=== PATIENT | male | born 1955 | race Caucasian/White ===

== ENCOUNTER 2017-10-29 12:41 | Emergency (ER) | payer BC, SELFPAY ==
[2017-10-29 12:45] VITALS: BP 160/87; PULSE 57; RESP 20; O2SAT 100; BMI 25.1
[2017-10-29 13:30] VITALS: BP 147/84; PULSE 57; RESP 15; O2SAT 100
--- NOTE | 2017-10-29 13:31 | DI.RAD.S_ITS ---
PROCEDURE: XR CHEST 2V INDICATIONS: Dizziness TECHNIQUE: 2 views of the chest were acquired. COMPARISON: None. FINDINGS: Surgical changes and devices: None. Lungs and pleura: No pleural effusions or pneumothorax. Lungs are clear. Mediastinum: Mediastinal contours are normal. Heart size is normal. Bones and chest wall: No suspicious bony abnormalities. Soft tissues appear unremarkable. IMPRESSION: 1. No acute cardiopulmonary disease. Dictated by: William Wilcox M.D. on 10/29/2017 at 14:34 Approved by: William Wilcox M.D. on 10/29/2017 at 14:35
[2017-10-29] MEDS: SODIUM CHLORIDE 0.9% 1,000 ML 150 ML IV (13:50)
[2017-10-29 14:06] LABS: Add Manual Diff / Slide Review NO; Basophils Percent Auto 0.6 % (0-2); Eosinophils Percent Auto 0.7 % (2-4); Hematocrit 41.7 % (41-53); Hemoglobin 14.4 g/dL (13.5-17.5); Lymphocytes Percent Auto 14.7 % (25-40); Mean Corpuscular HGB Conc 34.5 % (30-36); Mean Corpuscular Hemoglobin 29.7 PG (26-34); Mean Corpuscular Volume 86.1 fL (80-100); Monocytes Percent Auto 8.9 % (3-14); Neutrophils Absolute Auto 5000 /uL (3000-5900); Neutrophils Percent Auto 75.1 % (50-75); Platelet Count 155 X10^3/uL (150-400); Red Blood Cell Count 4.85 X10^6/uL (4.5-5.9); Red Cell Distribution Width 14.1 % (11.6-14.8); White Blood Cell Count 6.6 X10^3/uL (4.5-11.0)
[2017-10-29 14:10] LABS: HEMOLYSIS < 15 (0-50); Potassium 4.4 mmol/L (3.4-5.1); Sodium 138 mmol/L (137-145)
--- NOTE | 2017-10-29 14:16 | ED.DIZZY ---
HPI - Dizziness General Chief Complaint: Dizziness Stated Complaint: LIGHTHEADED/DIZZY Time Seen by Provider: 10/29/17 13:00 Source: patient Mode of arrival: ambulatory Limitations: no limitations History of Present Illness HPI Narrative: 62M hx HTN, Meniere's presenting after episode of lightheadedness which lasted longer than he is accustomed after standing up. It's persistence was not associated with any other symptoms and he came to get evaluated because of the duration of 20 minutes. No vision, hearing changes, no chest pain, SOB, cough, nausea or vomiting. Denies peripheral edema, or urinary complaints. PCP Dr. More Related Data Home Medications Medication Instructions Recorded Confirmed FLAXSEED (FLAXSEED OIL) 1 cap PO Q DAY #0 12/31/10 Fish Oil (#FISH OIL) 1 iu PO Q DAY #0 12/31/10 [VITAMINS] #0 12/31/10 niacin 250 mg PO Q DAY #0 12/31/10 ASPIRIN (#ASPIRIN) 80 mg PO QDAY #0 11/05/11 Previous Rx's Medication Instructions Recorded efinaconazole [Jublia] 1 ml TP QDAY #1 bot 10/01/16 lisinopril 2.5 mg PO Q DAY #90 tab 10/11/16 hydrochlorothiazide 25 mg PO QDAY #90 tab 10/25/16 [Shingrix] 1 dose #1 dose 07/06/17 diph,pertuss(acel),tet vac(PF) 0.5 ml IM X1 #1 dose 07/06/17 [Adacel(Tdap Adolesn/Adult)(PF)] Review of Systems Review of Systems ROS: Constitutional - No fever, chills Eyes - No visual changes ENT - No hearing loss Cardiovascular - Lightheadedness as per No chest pain, No edema, no palpitations Respiratory - No cough, no shortness of breath GI - No abdominal pain, No nausea, No vomiting - No dysuria, no hematuria MSK- No back pain Skin - No rash Neuro - No weakness, no change in level of consciousness Endocrine - No polyuria Hematologic/lymphatic - No easy bruising, no petechiae PFSH Social History Smoking Status: Never smoker Exam Narrative Exam Narrative: Exam: Constitutional - Well appearing, well nourished, NAD EYES - PERRL, EOMI ENT - Moist oral mucosa Cardiovasuclar - Normal rate, rhythm, no murmurs, gallops, rubs Respiratory - Lungs CTA bilaterally, no increased respiratory effort, no accessory muscle use GI - Soft, non tender, non distended, no rebound MSK - No deformity, No CVA tenderness, No peripheral edema Skin - No rash, no petechiae Neuro - A&Ox3, moves all extremities. No focal deficits Initial Vital Signs Initial Vital Signs: Vital Signs Pulse Rate 57 L 10/29/17 12:45 Respiratory Rate 20 10/29/17 12:45 Blood Pressure 160/87 H 10/29/17 12:45 Pulse Oximetry 100 10/29/17 12:45 Course Orders Ordered: ED Orders 10/29/17 12:52 EKG-12 Lead Stat 10/29/17 13:30 Basic Metabolic Panel Stat Complete Blood Count AUTO DIFF Stat Troponin I Stat 10/29/17 13:31 XR chest 2V Stat 10/29/17 14:14 Lactate (Lactic Acid) Stat Sodium Chloride (Normal Saline 0.9%) 1,000 mls @ 150 mls/hr IV CONT GAIL Last Admin: 10/29/17 13:50 Dose: 150 mls/hr Vital Signs - 8 hr 10/29/17 12:45 10/29/17 13:30 10/29/17 14:43 Pulse Rate 57 L 57 L 56 L Respiratory Rate 20 15 14 Blood Pressure 160/87 H Blood Pressure [Left Arm] 147/84 H 125/73 H Pulse Oximetry 100 100 100 MDM - Dizziness Lab Data Result diagrams: 10/29/17 13:30 10/29/17 13:30 Lab Results 10/29/17 10/29/17 10/29/17 Range/Units 13:30 13:30 14:14 WBC 6.6 (4.5-11.0) X10^3/uL RBC 4.85 (4.5-5.9) X10^6/uL Hgb 14.4 (13.5-17.5) g/dL Hct 41.7 (41-53) % MCV 86.1 (80-100) fL MCH 29.7 (26-34) PG MCHC 34.5 (30-36) % RDW 14.1 (11.6-14.8) % Plt Count 155 (150-400) X10^3/uL Neut % (Auto) 75.1 H (50-75) % Lymph % (Auto) 14.7 L (25-40) % [place] % (Auto) 8.9 (3-14) % Eos % (Auto) 0.7 L (2-4) % Baso % (Auto) 0.6 (0-2) % Neut # (Auto) 5000 (9936-5503) /uL Sodium 138 (137-145) mmol/L Potassium 4.4 (3.4-5.1) mmol/L Chloride 100.0 (98-107) mmol/L Carbon Dioxide 29.0 (22-32) mmol/L BUN 12.0 (9-20) mg/dL Creatinine 0.80 (0.66-1.25) mg/dL Estimated GFR > 60.0 (>60) mL/min BUN/Creatinine Ratio 15.0 (6-22) Glucose 102 (80-110) mg/dL Lactate 0.9 (0.7-2.1) mmol/L Calcium 9.3 (8.4-10.2) mg/dL Troponin I < 0.012 (0.01-0.034) ng/mL Imaging Data Chest x-ray: Radiologist's impression: Patient: Nj Mckeon WMR#: [id number] : 5Acct:[id number] Age/Sex: 62 / MDate of Service: 10/29/17 Loc: ED Accession Number: [id number] Procedure: XR chest 2V Ordering Provider: Tushar Le M.D. PROCEDURE: XR CHEST 2V INDICATIONS: Dizziness TECHNIQUE: 2 views of the chest were acquired. COMPARISON: None. FINDINGS: Surgical changes and devices: None. Lungs and pleura: No pleural effusions or pneumothorax. Lungs are clear. Mediastinum: Mediastinal contours are normal. Heart size is normal. Bones and chest wall: No suspicious bony abnormalities. Soft tissues appear unremarkable. IMPRESSION: 1. No acute cardiopulmonary disease. Dictated by: William Wilcox M.D. on 10/29/2017 at 14:34 Approved by: William Wilcox M.D. on 10/29/2017 at 14:35 ECG Data Interpretation: Sinus Bradycardia; HR [address]/Tw changes Normal MI interval No ectopy LVH MDM Narrative Medical decision making narrative: Patient with resolved lightheadedness in ED. Labs reviewed. No acute lab abnormalities requiring urgent intervention at this time. 1L NS bolus increased BP to 125 systolic. Ambulated patient; Patient stated he was asymptomatic. Patient stable for discharge and f/u with PCP Discharge Plan Departure Patient Disposition: Home, Self-Care Clinical Impression: Episodic lightheadedness Instructions: DI for Dizziness-Nonvertigo Activity Restrictions/Additional Instructions: Maintain adequate hydration. Please follow up with your primary care provider. Prescriptions: No Action niacin 250 MG tablet 250 mg PO Q DAY Qty: 0 RF: 0 FLAXSEED (FLAXSEED OIL) 1 cap PO Q DAY Qty: 0 RF: 0 Fish Oil (#FISH OIL) 1 iu PO Q DAY Qty: 0 RF: 0 [VITAMINS] Qty: 0 RF: 0 ASPIRIN (#ASPIRIN) 80 mg PO QDAY Qty: 0 RF: 0 efinaconazole [Jublia] 4 ML solution with applicator 1 ml TP QDAY Qty: 1 RF: 2 lisinopril 2.5 MG tablet 2.5 mg PO Q DAY Qty: 90 RF: 3 hydrochlorothiazide 25 MG tablet 25 mg PO QDAY Qty: 90 RF: 3 [Shingrix] 1 dose Qty: 1 RF: 0 diph,pertuss(acel),tet vac(PF) [Adacel(Tdap Adolesn/Adult)(PF)] 0.5 ML suspension 0.5 ml IM X1 Qty: 1 RF: 0 Referrals: Mabel More DO [Primary Care Provider] -
--- NOTE | 2017-10-29 14:20 | ED_ITS ---
HPI - Dizziness General Chief Complaint: Dizziness Stated Complaint: LIGHTHEADED/DIZZY Time Seen by Provider: 10/29/17 13:00 Source: patient Mode of arrival: ambulatory Limitations: no limitations History of Present Illness HPI Narrative: 62M hx HTN, Meniere's presenting after episode of lightheadedness which lasted longer than he is accustomed after standing up. It 's persistence was not associated with any other symptoms and he came to get evaluated because of the duration of 20 minutes. No vision, hearing changes, no chest pain, SOB, cough, nausea or vomiting. Denies peripheral edema, or urinary complaints. PCP Dr. More Related Data Home Medications Medication Instructions Recorded Confirmed FLAXSEED (FLAXSEED OIL) 1 cap PO Q DAY #0 12/31/10 Fish Oil (#FISH OIL) 1 iu PO Q DAY #0 12/31/10 [VITAMINS] #0 12/31/10 niacin 250 mg PO Q DAY #0 12/31/10 ASPIRIN (#ASPIRIN) 80 mg PO QDAY #0 11/05/11 Previous Rx's Medication Instructions Recorded efinaconazole [Jublia] 1 ml TP QDAY #1 bot 10/01/16 lisinopril 2.5 mg PO Q DAY #90 tab 10/11/16 hydrochlorothiazide 25 mg PO QDAY #90 tab 10/25/16 [Shingrix] 1 dose #1 dose 07/06/17 diph,pertuss(acel),tet vac(PF) 0.5 ml IM X1 #1 dose 07/06/17 [Adacel(Tdap Adolesn/Adult)(PF)] Review of Systems Review of Systems ROS: Constitutional - No fever, chills Eyes - No visual changes ENT - No hearing loss Cardiovascular - Lightheadedness as per No chest pain, No edema, no palpitations Respiratory - No cough, no shortness of breath GI - No abdominal pain, No nausea, No vomiting - No dysuria, no hematuria MSK- No back pain Skin - No rash Neuro - No weakness, no change in level of consciousness Endocrine - No polyuria Hematologic/lymphatic - No easy bruising, no petechiae PFSH Social History Smoking Status: Never smoker Exam Narrative Exam Narrative: Exam: Constitutional - Well appearing, well nourished, NAD EYES - PERRL, EOMI ENT - Moist oral mucosa Cardiovasuclar - Normal rate, rhythm, no murmurs, gallops, rubs Respiratory - Lungs CTA bilaterally, no increased respiratory effort, no accessory muscle use GI - Soft, non tender, non distended, no rebound MSK - No deformity, No CVA tenderness, No peripheral edema Skin - No rash, no petechiae Neuro - A&Ox3, moves all extremities. No focal deficits Initial Vital Signs Initial Vital Signs: Vital Signs Pulse Rate 57 L 10/29/17 12:45 Respiratory Rate 20 10/29/17 12:45 Blood Pressure 160/87 H 10/29/17 12:45 Pulse Oximetry 100 10/29/17 12:45 Course Orders Ordered: ED Orders 10/29/17 12:52 EKG-12 Lead Stat 10/29/17 13:30 Basic Metabolic Panel Stat Complete Blood Count AUTO DIFF Stat Troponin I Stat 10/29/17 13:31 XR chest 2V Stat 10/29/17 14:14 Lactate (Lactic Acid) Stat Sodium Chloride (Normal Saline 0.9%) 1,000 mls @ 150 mls/hr IV CONT GAIL Last Admin: 10/29/17 13:50 Dose: 150 mls/hr Vital Signs - 8 hr 10/29/17 12:45 10/29/17 13:30 10/29/17 14:43 Pulse Rate 57 L 57 L 56 L Respiratory Rate 20 15 14 Blood Pressure 160/87 H Blood Pressure [Left Arm] 147/84 H 125/73 H Pulse Oximetry 100 100 100 MDM - Dizziness Lab Data Result diagrams: 10/29/17 13:30 10/29/17 13:30 Lab Results 10/29/17 10/29/17 10/29/17 Range/Units 13:30 13:30 14:14 WBC 6.6 (4.5-11.0) X10^3/uL RBC 4.85 (4.5-5.9) X10^6/uL Hgb 14.4 (13.5-17.5) g/dL Hct 41.7 (41-53) % MCV 86.1 (80-100) fL MCH 29.7 (26-34) PG MCHC 34.5 (30-36) % RDW 14.1 (11.6-14.8) % Plt Count 155 (150-400) X10^3/uL Neut % (Auto) 75.1 H (50-75) % Lymph % (Auto) 14.7 L (25-40) % [place] % (Auto) 8.9 (3-14) % Eos % (Auto) 0.7 L (2-4) % Baso % (Auto) 0.6 (0-2) % Neut # (Auto) 5000 (3672-6905) /uL Sodium 138 (137-145) mmol/L Potassium 4.4 (3.4-5.1) mmol/L Chloride 100.0 (98-107) mmol/L Carbon Dioxide 29.0 (22-32) mmol/L BUN 12.0 (9-20) mg/dL Creatinine 0.80 (0.66-1.25) mg/dL Estimated GFR > 60.0 (>60) mL/min BUN/Creatinine Ratio 15.0 (6-22) Glucose 102 (80-110) mg/dL Lactate 0.9 (0.7-2.1) mmol/L Calcium 9.3 (8.4-10.2) mg/dL Troponin I < 0.012 (0.01-0.034) ng/mL Imaging Data Chest x-ray: Radiologist's impression: Patient: Nj Mckeon WMR#: [id number] : 5Acct:[id number] Age/Sex: 62 / MDate of Service: 10/29/17 Loc: ED Accession Number: [id number] Procedure: XR chest 2V Ordering Provider: Tushar Le M.D. PROCEDURE: XR CHEST 2V INDICATIONS: Dizziness TECHNIQUE: 2 views of the chest were acquired. COMPARISON: None. FINDINGS: Surgical changes and devices: None. Lungs and pleura: No pleural effusions or pneumothorax. Lungs are clear. Mediastinum: Mediastinal contours are normal. Heart size is normal. Bones and chest wall: No suspicious bony abnormalities. Soft tissues appear unremarkable. IMPRESSION: 1. No acute cardiopulmonary disease. Dictated by: William Wilcox M.D. on 10/29/2017 at 14:34 Approved by: William Wilcox M.D. on 10/29/2017 at 14:35 ECG Data Interpretation: Sinus Bradycardia; HR [address]/Tw changes Normal CA interval No ectopy LVH MDM Narrative Medical decision making narrative: Patient with resolved lightheadedness in ED. Labs reviewed. No acute lab abnormalities requiring urgent intervention at this time. 1L NS bolus increased BP to 125 systolic. Ambulated patient; Patient stated he was asymptomatic. Patient stable for discharge and f/u with PCP Discharge Plan Departure Patient Disposition: Home, Self-Care Clinical Impression: Episodic lightheadedness Instructions: DI for Dizziness-Nonvertigo Activity Restrictions/Additional Instructions: Maintain adequate hydration. Please follow up with your primary care provider. Prescriptions: No Action niacin 250 MG tablet 250 mg PO Q DAY Qty: 0 RF: 0 FLAXSEED (FLAXSEED OIL) 1 cap PO Q DAY Qty: 0 RF: 0 Fish Oil (#FISH OIL) 1 iu PO Q DAY Qty: 0 RF: 0 [VITAMINS] Qty: 0 RF: 0 ASPIRIN (#ASPIRIN) 80 mg PO QDAY Qty: 0 RF: 0 efinaconazole [Jublia] 4 ML solution with applicator 1 ml TP QDAY Qty: 1 RF: 2 lisinopril 2.5 MG tablet 2.5 mg PO Q DAY Qty: 90 RF: 3 hydrochlorothiazide 25 MG tablet 25 mg PO QDAY Qty: 90 RF: 3 [Shingrix] 1 dose Qty: 1 RF: 0 diph,pertuss(acel),tet vac(PF) [Adacel(Tdap Adolesn/Adult)(PF)] 0.5 ML suspension 0.5 ml IM X1 Qty: 1 RF: 0 Referrals: Mabel More DO [Primary Care Provider] -
[2017-10-29 14:25] LABS: Troponin I < 0.012 ng/mL (0.01-0.034)
[2017-10-29 14:28] LABS: Calcium 9.3 mg/dL (8.4-10.2); Estimated Glomerular Filt Rate > 60.0 mL/min (>60); Glucose 102 mg/dL (80-110)
[2017-10-29 14:32] LABS: Lactate (Lactic Acid) 0.9 mmol/L (0.7-2.1)
[2017-10-29 14:43] VITALS: BP 125/73; PULSE 56; RESP 14; O2SAT 100
== END 2017-10-29 15:02 | disposition home or self-care (01) ==
PROVIDERS: Emergency Provider Student in an Organized Health Care Education/Training Program; PCP Family Medicine
DX: R42 Dizziness and giddiness (principal)
CPT/HCPCS: 36415; 71046; 80048; 82962; 83605; 84484; 85025; 93005; 96360; 99283; 99285

== ENCOUNTER → 2018-06-05 06:46 | Outpatient (CLI) | payer BC, SELFPAY ==
--- NOTE | 2018-06-05 | DI.MRI.S_ITS ---
PROCEDURE: MR CERVICAL SPINE WO CON INDICATIONS: RADICULOPATHY OF CERVICAL SPINE TECHNIQUE: Noncontrast sagittal T1 spin echo and T2 fast spin echo, sagittal STIR, foraminal oblique sagittal T2 fast spin echo, and axial gradient echo or T2 fast spin echo through the cervical spine. COMPARISON: None. FINDINGS: Image quality: Excellent. Alignment and Curvature: There is normal bony alignment. Bone Marrow: Marrow demonstrates normal overall signal. Spinal Cord: Visualized spinal cord has normal size and signal. No cerebellar tonsillar herniation. Paraspinous Soft Tissues: No paravertebral masses. Prevertebral soft tissues are normal in thickness. C2-C3: Central disc herniation is seen with mild effacement of thecal sac anteriorly. No significant neuroforaminal narrowing. C3-C4: Proptosis bulge and mild central disc herniation is seen with mild central canal stenosis, no significant neural foramina narrowing. C4-C5: There is mild obvious disc bulge with no significant central canal stenosis or neural foramina narrowing. C5-C6: The diffuse disc bulge and central to right-sided disc herniation is seen at this level with mild bilateral uncinate hypertrophic changes. There is mild to moderate central canal stenosis and right worse than left bilateral neuroforamina narrowing. C6-C7: There is broad-based disc bulge and superimposed central to right sided disc herniation as well as left paracentral disc herniation. Bilateral uncinate hypertrophic changes also seen. Moderate central canal stenosis and left worse than right bilateral neuroforamina narrowing is seen. C7-T1: Normal appearance. IMPRESSION: 1. No marrow edema. No compression fracture or spondylolisthesis. No abnormal spinal cord signal. 2. Degenerative disc bulge and bilateral uncinate hypertrophic changes at C5-6 and C6-7 levels causing mild to moderate central canal stenosis and bilateral neuroforaminal narrowing more prominent at C6-7 level. Dictated by: Daron Bai M.D. on 06/05/2018 at 9:33 Approved by: Daron Bai M.D. on 06/05/2018 at 9:45
== END ==
PROVIDERS: PCP Family Medicine; Visit Provider Physical Medicine & Rehabilitation
DX: M50.122 Cervical disc disorder at C5-C6 level with radiculopathy (principal); M48.02 Spinal stenosis, cervical region
CPT/HCPCS: 72141

== ENCOUNTER → 2018-06-19 08:26 | Outpatient (CLI) | payer BC, SELFPAY | PROVIDERS: Family Provider Family Medicine; PCP Family Medicine; Visit Provider Specialist | DX: N40.0 Benign prostatic hyperplasia without lower urinary tract symptoms (principal) | CPT/HCPCS: 36415; 84153 ==

== ENCOUNTER → 2018-10-19 08:31 | Outpatient (CLI) | payer BC, SELFPAY ==
[2018-10-19 09:01] LABS: Hematocrit 43.1 % (41-53); Hemoglobin 14.5 g/dL (13.5-17.5); Mean Corpuscular HGB Conc 33.6 % (30-36); Mean Corpuscular Hemoglobin 29.1 PG (26-34); Mean Corpuscular Volume 86.6 fL (80-100); Platelet Count 167 X10^3/uL (150-400); Red Blood Cell Count 4.97 X10^6/uL (4.5-5.9); White Blood Cell Count 5.5 X10^3/uL (4.5-11.0)
[2018-10-19 09:14] LABS: Alanine Aminotransferase 20 IU/L (21-72); Albumin 4.4 g/dL (3.5-5.0); Albumin Globulin Ratio 1.8 (1.0-2.8); Alkaline Phosphatase 40 U/L (38-126); Aspartate Aminotransferase 19 IU/L (17-59); BUN Creatinine Ratio 15.6 (6-22); Bilirubin Total 1.1 mg/dL (0.2-1.3); Blood Urea Nitrogen 14 mg/dL (9-20); Calcium 9.3 mg/dL (8.4-10.2); Carbon Dioxide 29 mmol/L (22-32); Chloride 100 mmol/L (98-107); Cholesterol 183 mg/dL (140-199); Estimated Glomerular Filt Rate > 60.0 mL/min (>60); Globulin 2.5 g/dL (1.7-4.1); Glucose 92 mg/dL (80-110); HDL Cholesterol 59 mg/dL (40-60); HEMOLYSIS < 15 (0-50); LDL Cholesterol Calculated 108 mg/dL (<100); Potassium 4.2 mmol/L (3.4-5.1); Sodium 138 mmol/L (137-145); Total Protein 6.9 g/dL (6.3-8.2); Triglycerides 78 mg/dL (35-150)
[2018-10-19 09:26] LABS: Erythrocyte Sedimentation Rate 1 MM/HR (0-15)
[2018-10-19 09:44] LABS: Prostate Specific Antigen 2.95 ng/mL (0.10-4.00)
[2018-10-19 10:11] LABS: Thyroid Stimulating Hormone 1.92 uIU/mL (0.47-4.68)
== END ==
PROVIDERS: PCP Family Medicine; Visit Provider Family Medicine
DX: Z00.00 Encounter for general adult medical examination without abnormal findings (principal); I10 Essential (primary) hypertension; R97.20 Elevated prostate specific antigen [PSA]; Z51.81 Encounter for therapeutic drug level monitoring
CPT/HCPCS: 36415; 80053; 80061; 84153; 84443; 85027; 85651

== ENCOUNTER → 2019-04-06 08:48 | Outpatient (CLI) | payer BC, SELFPAY ==
[2019-04-06 10:27] LABS: Alanine Aminotransferase 20 IU/L (<50); Albumin 4.3 g/dL (3.5-5.0); Albumin Globulin Ratio 1.9 (1.0-2.8); Alkaline Phosphatase 35 U/L (38-126); Aspartate Aminotransferase 28 IU/L (17-59); BUN Creatinine Ratio 16.3 (6-22); Bilirubin Total 1.1 mg/dL (0.2-1.3); Blood Urea Nitrogen 13 mg/dL (9-20); Calcium 9.3 mg/dL (8.4-10.2); Carbon Dioxide 31 mmol/L (22-32); Chloride 102 mmol/L (98-107); Cholesterol 189 mg/dL (140-199); Estimated Glomerular Filt Rate > 60.0 mL/min (>60); Globulin 2.3 g/dL (1.7-4.1); Glucose 102 mg/dL (80-110); HDL Cholesterol 50 mg/dL (40-60); HEMOLYSIS < 15 (0-50); LDL Cholesterol Calculated 128 mg/dL (<100); Potassium 4.5 mmol/L (3.4-5.1); Sodium 137 mmol/L (137-145); Total Protein 6.6 g/dL (6.3-8.2); Triglycerides 56 mg/dL (35-150)
== END ==
PROVIDERS: PCP Family Medicine; Visit Provider Family Medicine
DX: E78.5 Hyperlipidemia, unspecified (principal); I10 Essential (primary) hypertension
CPT/HCPCS: 36415; 80053; 80061

== ENCOUNTER 2019-07-02 09:15 | Day surgery (SDC) | payer BC, SELFPAY ==
[2019-07-02] VITALS (9 sets, daily range): BP systolic 121–141; BP diastolic 58–86; PULSE 52–73; RESP 10–18; TEMP 36.1–36.3; O2SAT 97–100; BMI 24.1
[2019-07-02] MEDS: LACTATED RINGERS 1,000 ML 42 ML IV (10:06)
[2019-07-02] MEDS: CEFAZOLIN 2 GM/100 ML FROZ.PIGGY IV (11:20)
--- NOTE | 2019-07-02 11:20 | PM.PREOP ---
Pre-operative Note Interval Note History & Physical reviewed/Exam performed by Physician: Yes Changes to H&P: No
--- NOTE | 2019-07-02 11:52 | SUR.OPER ---
Supine on padded OR bed, head on pillow, arms secured on padded arm boards at <90 degrees abduction, legs uncrossed, safety belt at thigh, tape over blanket over lower legs.
[2019-07-02] MEDS: BUPIVACAINE 0.5% (PF) VIAL 30 ML INJ (11:59)
--- NOTE | 2019-07-02 12:53 | PM.OP.1 ---
Operative Date/Time/Diagnoses Date of procedure: 07/02/19 Time of procedure: 12:30 Pre-op diagnosis: Patient with reducible left inguinal hernia Post-op diagnosis: same (Direct hernia) Procedure & Clinicians Procedure: Repair shouldice technique Same procedure as scheduled: Yes Indications: Symptomatic left inguinal hernia Surgeon: Garett Gilbetr Click Yes if Unassisted: Yes Anesthesia Type: General Operative Notes Findings: Direct hernia containing preperitoneal fat Closure Type: primary Specimen(s): none sent Prosthetic devices, grafts, tissues, transplants, or devices: None Estimated Blood Loss (mL): 10 Blood products transfused: none Procedure in detail: The patient was placed supine on the operating room table and underwent general LMA anesthesia. He was prepped and draped in the usual fashion. Local anesthetic was infiltrated and a transverse incision made overlying the internal ring. Was carried down level the external oblique. The external oblique was opened parallel with its fibers through the external ring. There was the ileoinguinal nerve exiting through the fascia in a defect and this was carefully preserved. The cord structures were elevated the cremaster open proximally. There was no evidence of an indirect sac. The floor had an obvious defect with fat protruding up through it. I opened the floor overlying the fat dissected off the underside of the overlying tissues. I then opened from the internal ring to the pubic tubercle and using a 2 0 Prolene performed a shoulder ice repair I sutured at the pubic tubercle and ran the underside of the medial cut edge muscle to the cut edge of the lateral tissues in floor including a portion of the ileopubic tract. This was run in such a way as to form a new internal ring that was snug but not constricting. I then ran the head edge of the floor medially to the lateral iliopubic tract and edge of the inguinal ligament back to the pubic tubercle where was tied to the initial stitch. I then created 2 additional layers by suturing the internal oblique to the ileopubic tract just above my lasted suture line running from the newly formed internal ring down to the pubic tubercle on back. The external oblique was closed with a [id number] 3 0 Vicryl suture medial most tissues to the nerve which exited through the external oblique and then ran the tissue lateral to it closing the defect in the fascia. The opening was left so that the nerve could exit without being constricted in suture. The subcu was closed with interrupted 4 0 Vicryl and skin was closed running 4 0 Vicryl subcuticular stitch and Steri-Strips. Patient was extubated and taken recovery in good condition. Complications: none Post-operative Condition: stable Disposition: PACU
[2019-07-02] MEDS: OXYCODONE/ACETAMINOPHEN 5/325 TABLET 1 TAB PO (13:02)
== END 2019-07-02 13:43 | disposition home or self-care (01) ==
PROVIDERS: PCP Family Medicine; Visit Provider Specialist
PROC: (CPT 49505; principal; 2019-07-02 10:45)
DX: K40.90 Unilateral inguinal hernia, without obstruction or gangrene, not specified as recurrent (principal); I10 Essential (primary) hypertension
CPT/HCPCS: 49505; J0690; J2405; J2704; J3010

== ENCOUNTER 2019-07-04 20:25 | Emergency (ER) | payer BC, SELFPAY ==
[2019-07-04 20:30] VITALS: BP 170/96; PULSE 76; RESP 16; TEMP 36.4; O2SAT 100; BMI 25.1
--- NOTE | 2019-07-04 20:59 | DI.RAD.S_ITS ---
PROCEDURE: XR ACUTE ABDOMEN SERIES INDICATIONS: no abdominal distention/ constipation TECHNIQUE: One view chest and two views of the abdomen were acquired. COMPARISON: None. FINDINGS: Surgical changes and devices: None. Chest: Lungs are clear. Heart size is normal. No pleural effusions. No pneumoperitoneum. Abdomen: Bowel gas pattern is nonobstructive. There is a moderate amount of fecal material noted throughout the imaged colon and rectum. No suspicious bowel wall thickening identified radiographically. No suspicious calcifications. Visualized solid organ contours appear normal. Bones: No suspicious bony lesions. IMPRESSION: 1. Nonobstructive bowel gas pattern. Moderate amount of fecal material seen throughout the colon and rectum compatible with reported history of constipation. 2. No acute cardiopulmonary abnormalities. Dictated by: Jose Alfredo Moreira M.D. on 07/05/2019 at 9:06 Approved by: Jose Alfredo Moreira M.D. on 07/05/2019 at 9:07
--- NOTE | 2019-07-04 21:35 | ED.ABDPAIN ---
HPI - Abdominal Pain General Chief Complaint: Abdominal Pain Stated Complaint: abd pain, unable to urinate, chills Time Seen by Provider: 07/04/19 21:35 Source: patient Mode of arrival: Ambulatory Limitations: no limitations History of Present Illness HPI narrative: 64-year-old male comes in with abdominal pain. Patient had hernia repair on the left inguinal region on Tuesday. Since then he has not been able to have a bowel movement. He has been passing gas. He feels like his belly is a little bit more distended. He had about 5 minutes of chills earlier this evening although he states that may have been him encouraging himself to have a bowel movement. He has tried stool softeners, prune juice as well as prunes, he states he has been drinking water and tried Metamucil without any improvement. He has not any nausea or vomiting. He states he has sort of generalized abdominal discomfort. No back pain. No fevers. Patient states that he is not having any issues with urination and that he was able to urinate here in the ED. he does have bruising in the groin and down into the testicles. Related Data Home Medications Medication Instructions Recorded Confirmed FLAXSEED (FLAXSEED OIL) 1 cap PO Q DAY #0 12/31/10 07/02/19 Fish Oil (#FISH OIL) 1 iu PO Q DAY #0 12/31/10 07/02/19 [VITAMINS] #0 12/31/10 06/20/19 ASPIRIN (#ASPIRIN) 81 mg PO QDAY #0 11/25/17 07/02/19 Previous Rx's Medication Instructions Recorded hydrochlorothiazide 25 mg tablet 25 mg PO QDAY #90 tab 11/06/18 lisinopril 2.5 mg tablet 2.5 mg PO Q DAY #90 tab 11/06/18 niacin 250 mg tablet 250 mg PO Q DAY #90 tab 11/06/18 varicella-zoster [id number] (PF) 50 0.5 ml IM ONCE #1 each 05/07/19 mcg/0.5 mL IM susp, kit oxycodone-acetaminophen [Percocet] See Rx Instructions .ROUTE 07/02/19 .COMPLEX PRN #10 tab Allergies Allergy/AdvReac Type Severity Reaction Status Date / Time No Known Drug Allergies Allergy Verified 07/04/19 20:34 Review of Systems Review of Systems ROS Unobtainable: All systems reviewed & are unremarkable except as noted in HPI and below Patient History Medical History Basal cell carcinoma (Resolved Unknown) BPH (benign prostatic hyperplasia) (Chronic Unknown) Elevated PSA (Chronic Unknown) Former smoker (Acute) Hearing loss (Chronic Unknown) Hypertension (Chronic Unknown) Left inguinal hernia (Acute) Osteoarthritis (Chronic Unknown) Spinal stenosis (Chronic Unknown) Tinnitus of both ears (Chronic Unknown) Surgical History Hx of tonsillectomy (Acute) Social History marital status: household members: spouse and children occupational status: previously employed Smoking Status: Former smoker alcohol intake: current substance use type: does not use Smoking Status: Former smoker alcohol intake frequency: 0-2 drinks per day Substance Use Type: does not use Exam Narrative Exam Narrative: GENERAL: Alert and oriented x three, well-nourished male in mild distress. HEENT: Head normocephalic, atraumatic, EOMI, pupils reactive, face symmetric, moist mucous membranes NECK: Supple, full range of motion CARDIOVASCULAR: Regular rate and rhythm without murmurs, rubs or gallops. RESPIRATORY: Breath sounds equal bilaterally, no wheezes rales or rhonchi. ABDOMEN: Soft, nontender to palpation. Mildly distended but not hard. Normoactive bowel sounds all 4 quadrants. No guarding or rebound, rigidity, no mass. Patient has an incision in the left inguinal region that appears to be healing, it is clean and dry with no erythema, no drainage. Patient is very mildly tender to palpation. Patient does have bruising in the bilateral inguinal region and into the testicles. : No CVA tenderness EXTREMITIES: Normal range of motion, no clubbing or edema. Neurovascularly intact NEUROLOGICAL: Cranial nerves II through XII grossly intact. Moving all extremities SKIN: Warm, dry, no petechiae, no rashes or lesions. Initial Vital Signs Initial Vital Signs: Vital Signs Temperature 97.6 F 07/04/19 20:30 Pulse Rate 76 07/04/19 20:30 Respiratory Rate 16 07/04/19 20:30 Blood Pressure 170/96 H 07/04/19 20:30 Pulse Oximetry 100 07/04/19 20:30 Course Orders Ordered: ED Orders 07/04/19 20:59 XR acute abdomen series Stat Discontinued Medications Magnesium Citrate (Magnesium Citrate) 300 ml PO NOW ONE Stop: 07/04/19 22:32 Last Admin: 07/04/19 22:34 Dose: 300 ml Documented by: DAR Vital Signs Vital signs: Vital Signs - 8 hr 07/04/19 20:30 07/04/19 22:37 Temperature 97.6 F Pulse Rate 76 68 Respiratory Rate 16 16 Blood Pressure 170/96 H 150/78 H Pulse Oximetry 100 98 MDM - Abdominal Pain Lab Data Point of care testing: Urine Dip Bedside Urine Glucose Negative Bedside Urine Bilirubin - Negative Bedside Urine Ketone - Negative Urine Specific [place] 1.010 Bedside Urine Occult Blood - Negative Bedside Urine pH 6.5 Bedside Urine Protein - Negative Bedside Urine Urobilinogen - Negative Bedside Urine Nitrite - Negative Bedside Urine Leukocytes - Negative Esterase Imaging Data Abdominal x-ray: Attestation: I personally reviewed and interpreted this imaging study as follows: My Impression: patient has air throughout. No air-fluid levels. Tell does look distended the right upper quadrant. No clear signs of bowel obstruction. [facility] Narrative Medical decision making narrative: Patient has been having regularly flatus without other obstructive symptoms. He does appear to have air throughout although bowel does appear somewhat distended. No air-fluid levels or appreciated. Patient does feel like he needs to have a bowel movement. He had discussed with Dr. Gilbert about trying milk of magnesia which we discussed he can try. We also discussed increasing his movement. Continuing to avoid narcotics. Daily stool softeners until soft stool. He was given a bottle of magnesium citrate that he can try if he is not having success. We did discuss that there is always potential for obstruction or possibly infectious or other process and if patient is having worsening symptoms to return to the ED. Discharge Plan Departure Patient Disposition: Home Clinical Impression: Constipation, S/P inguinal hernia repair Discharge Date/Time: 07/04/19 22:39 Instructions: DI for Constipation Activity Restrictions/Additional Instructions: Follow up with your surgeon at your appointment. Continue to avoid narcotics as this slows your bowel movement. You may continue to take Tylenol up to a 1000 mg every 8 hours as needed. Continue stool softener 1-2 times daily until having normal soft stools. Continue with hydration make sure your drinking at least 8 total, 8 oz glasses of water daily. Drink 1/2 bottle of magnesium citrate, wait 4-5 hours and if this is not helpful we do not have a bowel movement drink the 2nd half of the bottle. Return to the ER for fevers greater than 100.4 F, new or worsening abdominal pain, vomiting, if you are not having a bowel movement and you are not passing gas, inability to urinate, signs of redness, swelling or drainage from your surgical site or other new or concerning symptoms. Prescriptions: No Action FLAXSEED (FLAXSEED OIL) 1 cap PO Q DAY Qty: 0 RF: 0 Fish Oil (#FISH OIL) 1 iu PO Q DAY Qty: 0 RF: 0 [VITAMINS] Qty: 0 RF: 0 ASPIRIN (#ASPIRIN) 81 mg PO QDAY Qty: 0 RF: 0 niacin 250 mg tablet 250 mg PO Q DAY Qty: 90 RF: 3 lisinopril 2.5 mg tablet 2.5 mg PO Q DAY Qty: 90 RF: 3 hydrochlorothiazide 25 mg tablet 25 mg PO QDAY Qty: 90 RF: 3 Shingrix (PF) 50 mcg/0.5 mL suspension for reconstitution 0.5 ml IM ONCE Qty: 1 RF: 0 oxycodone-acetaminophen [Percocet] 5-325 mg tablet See Rx Instructions .ROUTE .COMPLEX PRN (Reason: painful procedure) Qty: 10 RF: 0 Referrals: Mabel More DO [Primary Care Provider] -
[2019-07-04] MEDS: MAGNESIUM CITRATE 300 ML SOLUTION PO (22:34)
[2019-07-04 22:37] VITALS: BP 150/78; PULSE 68; RESP 16; O2SAT 98
== END 2019-07-04 22:39 | disposition home or self-care (01) ==
PROVIDERS: Emergency Provider Emergency Medicine; Family Provider Family Medicine; PCP Family Medicine; Referring Provider Specialist
DX: K59.00 Constipation, unspecified (principal)
CPT/HCPCS: 74022; 81003; 99283

== ENCOUNTER 2019-08-14 08:44 | Day surgery (SDC) | payer BC, SELFPAY ==
--- NOTE | 2019-08-14 | PATH_ITS ---
[facility] Accession Number: [id number] . 01 Material submitted: . colon - ASCENDING COLON POLYP . 02 Diagnosis: Ascending Colon, Polyp: Tubular adenoma. MRV 08/15/2019 1214 Local . 02 Electronically signed: . Guillermo Castillo MD, PhD, Pathologist NPI- [id number] . 01 Gross description: . ASCENDING COLON POLYP: Received in formalin are 3 fragment(s) of boggs, soft tissue measuring 0.1 x 0.1 x 0.1 cm to 0.3 x 0.3 x 0.3 cm submitted entirely in 1 cassette(s) /[facility] [place] 08/14/2019 2116 Local . 02 Pathologist provided ICD-10: D12.2 . 02 CPT . 679282 Performed at: 01 [facility] [address] [id number] MD William Fisher MD Phone: [phone] Performed at: 02 [facility] [address] [place], [place] [id number] MD Kianna Howard MD Phone: [phone]
[2019-08-14 09:14] VITALS: BP 139/82; PULSE 70; RESP 16; TEMP 36.4; O2SAT 99; BMI 24.3
[2019-08-14] MEDS: SODIUM CHLORIDE 0.9% 1,000 ML 200 ML IV (09:21)
--- NOTE | 2019-08-14 10:07 | PM.PREOP ---
Pre-operative Note Interval Note History & Physical reviewed/Exam performed by Physician: Yes Changes to H&P: Yes H&P completed within 30 days and has changed as indicated here:: I have discussed the procedure and the rationale with the patient including risks of bleeding, perforation which would necessitate a major operation, failure to find remove all lesions and the potential to tattoo. They appeared to understand and wished to proceed. ASA Class (for procedural sedation): II
[2019-08-14] MEDS: MIDAZOLAM 5 MG/5 ML VIAL IV (11:04)
--- NOTE | 2019-08-14 11:04 | PM.OP.ENDO ---
Operative Date/Time/Diagnoses Date of procedure: 08/14/19 Time of procedure: 11:04 Pre-op diagnosis: Screening exam Post-op diagnosis: same (Large prostate. Sigmoid diverticulosis. Long redundant colon. Polyp in the ascending colon.) Procedure & Clinicians Study performed: Colonoscopy with cold biopsy Same procedure as scheduled: Yes Indications: Screening Surgeon: Garett Gilbert Procedure Notes SCOAP/Timeout: Performed Procedure in detail: The patient was placed in the left lateral decubitus position and underwent IV sedation directed by the surgeon consisting of fentanyl and Versed. Digital exam was remarkable for normal sphincter tone and a very large prostate. I could not feel a dominant mass.. The scope was inserted and advanced through the rectum into the sigmoid, descending, transverse, and ascending colon. Patient was noted to have sigmoid diverticulosis. He also had a very long redundant colon. I had to insert a stiffener, applied pressure, repositioned the patient, and backed the scope out knee in multiple times in order to reach the cecum.. The cecum was reached identified by the ileocecal valve and the appendiceal opening. The ileocecal valve was successfully cannulated. The terminal ileum was normal in appearance. The scope was gradually brought out. One Polyp was found at ascending colon and was biopsied and appeared to be completely removed. The scope ultimately was retroflexed in the rectum. The appearance was unremarkable. However and bringing the scope through the anal canal appeared that the patient did have hemorrhoid without ulceration. The scope was removed and the patient tolerated the procedure well. The prep was good once all the fluid was evacuated. Scope withdrawal time: 8 minutes(10 total) Sedation minutes: 52 Findings: diverticulosis (Sigmoid), polyp and other findings (Very large prostate) Specimen(s): none sent Complications: none Post-procedure Recommendations: Colonscopy in 5 years (Due to finding of polyp.) and Other recommendation (Discuss your very large prostate with her primary care provider.) Follow up: as needed Disposition: PACU
[2019-08-14] MEDS: fentaNYL 250 MCG/5 ML INJ IV (11:05)
[2019-08-14 11:40] VITALS: BP 106/73; PULSE 54; RESP 14; O2SAT 99
== END 2019-08-14 11:58 | disposition home or self-care (01) ==
PROVIDERS: Family Provider Family Medicine; PCP Family Medicine; Referring Provider Family Medicine; Visit Provider Specialist
PROC: 0DJD8ZZ Inspection of Lower Intestinal Tract, Via Natural or Artificial Opening Endoscopic (ICD-10-PCS; CPT 45378; principal; 2019-08-14 09:45)
DX: Z12.11 Encounter for screening for malignant neoplasm of colon (principal); K57.30 Diverticulosis of large intestine without perforation or abscess without bleeding; N40.0 Benign prostatic hyperplasia without lower urinary tract symptoms; D12.2 Benign neoplasm of ascending colon
CPT/HCPCS: 45380; 99152; 99153; J2250; J3010

== ENCOUNTER → 2019-10-31 11:35 | Outpatient (CLI) | payer BC, SELFPAY ==
[2019-10-31 13:25] LABS: Alanine Aminotransferase 17 IU/L (<50); Albumin 4.7 g/dL (3.5-5.0); Albumin Globulin Ratio 1.8 (1.0-2.8); Alkaline Phosphatase 35 U/L (38-126); Aspartate Aminotransferase 27 IU/L (17-59); BUN Creatinine Ratio 13.8 (6-22); Bilirubin Total 0.9 mg/dL (0.2-1.3); Blood Urea Nitrogen 12 mg/dL (9-20); Calcium 9.6 mg/dL (8.4-10.2); Carbon Dioxide 29 mmol/L (22-32); Chloride 101 mmol/L (98-107); Cholesterol 202 mg/dL (140-199); Estimated Glomerular Filt Rate > 60.0 mL/min (>60); Globulin 2.6 g/dL (1.7-4.1); Glucose 95 mg/dL (80-110); HDL Cholesterol 56 mg/dL (40-60); HEMOLYSIS < 15 (0-50); LDL Cholesterol Calculated 132 mg/dL (<100); Sodium 139 mmol/L (137-145); Total Protein 7.3 g/dL (6.3-8.2); Triglycerides 70 mg/dL (35-150)
[2019-10-31 13:32] LABS: Add Manual Diff / Slide Review NO; Basophils Absolute Auto 0 /uL (0-100); Basophils Percent Auto 0.5 % (0-2); Eosinophils Absolute Auto 100 /uL (0-450); Eosinophils Percent Auto 2.1 % (2-4); Hematocrit 42.4 % (41-53); Hemoglobin 14.6 g/dL (13.5-17.5); Lymphocytes Absolute Auto 1500 /uL (1100-4500); Lymphocytes Percent Auto 27.7 % (25-40); Mean Corpuscular HGB Conc 34.4 % (30-36); Mean Corpuscular Hemoglobin 30.3 PG (26-34); Mean Corpuscular Volume 88.2 fL (80-100); Monocytes Absolute Auto 500 /uL (0-900); Monocytes Percent Auto 9.3 % (3-14); Neutrophils Absolute Auto 3200 /uL (1500-7000); Neutrophils Percent Auto 60.4 % (50-75); Platelet Count 145 X10^3/uL (150-400); Red Blood Cell Count 4.81 X10^6/uL (4.5-5.9); Red Cell Distribution Width 14.7 % (11.6-14.8); White Blood Cell Count 5.3 X10^3/uL (4.5-11.0)
[2019-10-31 13:53] LABS: Prostate Specific Antigen 2.99 ng/mL (0.10-4.00)
[2019-10-31 13:58] LABS: Thyroid Stimulating Hormone 2.85 uIU/mL (0.47-4.68)
[2019-11-01 17:41] LABS: Hep C Virus Ab w/Reflex Quant NEGATIVE s/c (NEGATIVE)
== END ==
PROVIDERS: Family Provider Family Medicine; PCP Family Medicine; Referring Provider Family Medicine; Visit Provider Family Medicine
DX: Z00.01 Encounter for general adult medical examination with abnormal findings (principal); I10 Essential (primary) hypertension; N40.0 Benign prostatic hyperplasia without lower urinary tract symptoms
CPT/HCPCS: 36415; 80053; 80061; 84153; 84443; 85025; 86803

== ENCOUNTER → 2020-05-14 07:40 | Outpatient (CLI) | payer MEDICARE, OTHER, SELFPAY ==
[2020-05-14 08:55] LABS: Creatinine Urine Random 64.8 mg/dL
[2020-05-14 09:01] LABS: Microalbumin Urine Random < 0.6 mg/dL (0-1.6)
[2020-05-14 09:22] LABS: Prostate Specific Antigen 2.67 ng/mL (0.10-4.00)
== END ==
PROVIDERS: Family Provider Family Medicine; PCP Family Medicine; Referring Provider Specialist; Visit Provider Specialist
DX: N40.0 Benign prostatic hyperplasia without lower urinary tract symptoms (principal); I10 Essential (primary) hypertension
CPT/HCPCS: 36415; 82043; 82570; 84153

== ENCOUNTER → 2020-06-19 08:06 | Outpatient (CLI) | payer MEDICARE, OTHER, SELFPAY ==
[2020-06-19 08:38] LABS: Add Manual Diff / Slide Review NO; Basophils Absolute Auto 0 /uL (0-100); Basophils Percent Auto 0.7 % (0-2); Eosinophils Absolute Auto 100 /uL (0-450); Eosinophils Percent Auto 2.5 % (2-4); Hematocrit 41.9 % (41-53); Hemoglobin 14.2 g/dL (13.5-17.5); Lymphocytes Absolute Auto 1600 /uL (1100-4500); Mean Corpuscular HGB Conc 33.9 % (30-36); Mean Corpuscular Hemoglobin 29.2 PG (26-34); Mean Corpuscular Volume 86.2 fL (80-100); Monocytes Absolute Auto 600 /uL (0-900); Monocytes Percent Auto 10.9 % (3-14); Neutrophils Absolute Auto 3500 /uL (1500-7000); Neutrophils Percent Auto 58.9 % (50-75); Platelet Count 148 X10^3/uL (150-400); Red Blood Cell Count 4.87 X10^6/uL (4.5-5.9); Red Cell Distribution Width 13.8 % (11.6-14.8); White Blood Cell Count 5.9 X10^3/uL (4.5-11.0)
[2020-06-19 08:51] LABS: Hemoglobin A1C% w Est Avg Glu 5.1 % (4.0-6.0)
[2020-06-19 08:54] LABS: Alanine Aminotransferase 21 IU/L (<50); Albumin 4.4 g/dL (3.5-5.0); Albumin Globulin Ratio 1.9 (1.0-2.8); Alkaline Phosphatase 38 U/L (38-126); Aspartate Aminotransferase 28 IU/L (17-59); BUN Creatinine Ratio 14.9 (6-22); Blood Urea Nitrogen 14 mg/dL (9-20); Calcium 9.3 mg/dL (8.4-10.2); Carbon Dioxide 34 mmol/L (22-32); Chloride 101 mmol/L (98-107); Cholesterol 193 mg/dL (140-199); Estimated Glomerular Filt Rate > 60.0 mL/min (>60); Globulin 2.3 g/dL (1.7-4.1); Glucose 94 mg/dL (80-110); HDL Cholesterol 63 mg/dL (40-60); HEMOLYSIS < 15 (0-50); LDL Cholesterol Calculated 115 mg/dL (<100); Potassium 3.8 mmol/L (3.4-5.1); Sodium 136 mmol/L (137-145); Total Protein 6.7 g/dL (6.3-8.2); Triglycerides 73 mg/dL (35-150)
== END ==
PROVIDERS: Family Provider Family Medicine; PCP Family Medicine; Referring Provider Family Medicine; Visit Provider Family Medicine
DX: E78.5 Hyperlipidemia, unspecified (principal); Z83.3 Family history of diabetes mellitus
CPT/HCPCS: 36415; 80053; 80061; 83036; 85025

== ENCOUNTER → 2020-12-04 08:33 | Outpatient (CLI) | payer MEDICARE, OTHER, SELFPAY ==
[2020-12-04 10:11] LABS: Prostate Specific Antigen 3.01 ng/mL (0.10-4.00)
== END ==
PROVIDERS: Family Provider Family Medicine; PCP Family Medicine; Referring Provider Specialist; Visit Provider Specialist
DX: N40.0 Benign prostatic hyperplasia without lower urinary tract symptoms (principal)
CPT/HCPCS: 36415; 84153

== ENCOUNTER → 2021-01-30 16:59 | Outpatient (CLI) | payer MEDICARE, OTHER, SELFPAY | PROVIDERS: Family Provider Family Medicine; PCP Family Medicine; Visit Provider Nurse Practitioner | DX: S81.802A Unspecified open wound, left lower leg, initial encounter (principal) | CPT/HCPCS: 87070; 87075; 87205 ==

== ENCOUNTER → 2021-03-18 16:30 | Outpatient (CLI) | payer MEDICARE, OTHER, SELFPAY ==
[2021-03-18 18:26] LABS: Add Manual Diff / Slide Review NO; Basophils Absolute Auto 0 /uL (0-100); Basophils Percent Auto 0.5 % (0-2); Eosinophils Absolute Auto 100 /uL (0-450); Eosinophils Percent Auto 1.3 % (2-4); Hematocrit 42.5 % (41-53); Hemoglobin 14.1 g/dL (13.5-17.5); Lymphocytes Absolute Auto 1500 /uL (1100-4500); Lymphocytes Percent Auto 19.2 % (25-40); Mean Corpuscular HGB Conc 33.2 % (30-36); Mean Corpuscular Hemoglobin 28.6 PG (26-34); Mean Corpuscular Volume 86.1 fL (80-100); Monocytes Absolute Auto 700 /uL (0-900); Monocytes Percent Auto 9.2 % (3-14); Neutrophils Absolute Auto 5300 /uL (1500-7000); Neutrophils Percent Auto 69.8 % (50-75); Platelet Count 158 X10^3/uL (150-400); Red Blood Cell Count 4.94 X10^6/uL (4.5-5.9); Red Cell Distribution Width 15.6 % (11.6-14.8); White Blood Cell Count 7.7 X10^3/uL (4.5-11.0)
[2021-03-18 19:45] LABS: Appearance Urine UA CLEAR; Bilirubin Urine UA NEGATIVE (NEGATIVE); Color Urine UA YELLOW; Glucose Urine UA NEGATIVE (Negative); Ketones Urine UA NEGATIVE (NEGATIVE); Leukocyte Esterase Urine UA NEGATIVE (NEGATIVE); Nitrite Urine UA NEGATIVE (Negative); Occult Blood Urine UA NEGATIVE (Negative); Protein Urine UA NEGATIVE (Negative); Specific Gravity Urine UA 1.015 (1.000-1.035); Urobilinogen Urine UA 0.2 E.U./dL (0.2)
[2021-03-18 19:56] LABS: Bacteria Urine None Seen; Culture Indicated Urine Cult Not Indicated; RBC Urine None Seen (0-5/HPF); WBC Urine None Seen (0-5/HPF)
== END ==
PROVIDERS: Family Provider Family Medicine; PCP Family Medicine; Referring Provider Family Medicine; Visit Provider Family Medicine
DX: R10.9 Unspecified abdominal pain (principal)
CPT/HCPCS: 36415; 81001; 85025

== ENCOUNTER → 2021-03-26 08:10 | Outpatient (CLI) | payer MEDICARE, OTHER, SELFPAY ==
--- NOTE | 2021-03-26 08:11 | DI.US.S_ITS ---
PROCEDURE: US ABDOMEN LIMITED INDICATIONS: RIGHT INGUINAL PAIN; POSSIBLE HERNIA TECHNIQUE: Real-time focused scanning was performed of the abdomen, with image documentation. COMPARISON: None. FINDINGS: Ultrasound was performed in the area of interest in upright position with Valsalva. No abnormality is seen. No inguinal hernia is identified. IMPRESSION: No inguinal hernia is identified. Dictated by: Nadia Kang M.D. on 03/26/2021 at 9:05 Approved by: Nadia Kang M.D. on 03/26/2021 at 9:07
== END ==
PROVIDERS: Family Provider Family Medicine; PCP Family Medicine; Referring Provider Family Medicine; Visit Provider Family Medicine
DX: R10.31 Right lower quadrant pain (principal)
CPT/HCPCS: 76705

== ENCOUNTER → 2021-05-05 10:42 | Outpatient (CLI) | payer MEDICARE, OTHER, SELFPAY ==
[2021-05-05 11:41] LABS: COVID19 -Nasal RAPID Negative (Negative)
== END ==
PROVIDERS: Family Provider Family Medicine; PCP Family Medicine; Visit Provider Specialist
DX: Z01.812 Encounter for preprocedural laboratory examination (principal); Z20.822 Contact with and (suspected) exposure to COVID-19
CPT/HCPCS: 87635; C9803

== ENCOUNTER 2021-05-06 10:41 | Day surgery (SDC) | payer MEDICARE, OTHER, SELFPAY ==
[2021-05-04 10:27] VITALS: BMI 24.7
[2021-05-06 11:11] VITALS: BP 178/100; PULSE 69; RESP 16; TEMP 36.8; O2SAT 100; BMI 25.1
[2021-05-06] MEDS: LACTATED RINGERS 1,000 ML 42 ML IV (11:46)
--- NOTE | 2021-05-06 13:07 | SUR.OPER ---
Supine on padded OR bed, head on pillow, arms secured on padded arm boards at <90 degrees abduction, legs uncrossed, safety belt at thigh, tape over blanket over lower legs.
--- NOTE | 2021-05-06 13:24 | P.HP_ITS ---
History of Present Illness History of Present Illness Date Patient Seen: 05/06/21 Time Patient Seen: 13:25 Chief complaint: REPAIR [facility] Narrative: The patient is a gentleman with a right inguinal hernia here for repair. He has had a left inguinal hernia repaired in the past. Possible he would like this repaired without mesh but he leaves it to my discretion if I think mesh would be a better choice. Patient History Medical History Basal cell carcinoma (Unknown) BPH (benign prostatic hyperplasia) (Unknown) Elevated PSA (Unknown) Family history of prostate cancer in father Former smoker Hearing loss (Unknown) Hernia, inguinal, right History of elevated PSA Hyperlipidemia Hypertension (Unknown) Left inguinal hernia Osteoarthritis (Unknown) Right inguinal hernia Spinal stenosis (Unknown) Tinnitus of both ears (Unknown) Surgical History H/O circumcision H/O prostate biopsy Hx of left inguinal hernia repair (07/02/19) Hx of tonsillectomy Family & Social History Family History Father Cancer Social History: household members spouse,children Tobacco & Substance use: Smoking Status Never smoker alcohol intake current alcohol intake frequency 0-2 drinks per day Substance Use Type does not use Meds Home Medications and Allergies Home Medications Medication Instructions Recorded Confirmed Type FLAXSEED (FLAXSEED OIL) 1 cap PO Q DAY #0 12/31/10 03/27/21 History [VITAMINS] #0 12/31/10 03/27/21 History omega-3 fatty acids [Fish Oil] PO 11/14/19 03/27/21 History lisinopril 2.5 mg tablet 2.5 mg PO Q DAY #90 tab 07/31/20 05/06/21 Rx hydrochlorothiazide 25 mg tablet See Rx Instructions .ROUTE 09/03/20 05/06/21 Rx .COMPLEX #90 tab aspirin 81 mg tablet,delayed 81 mg PO .every other day tab 12/10/20 05/06/21 History release niacin 500 mg tablet 500 mg PO DAILY 12/22/20 05/06/21 History mupirocin 2 % topical ointment 1 applic TOPICAL BID #15 g 01/21/21 05/04/21 Rx Allergies Allergy/AdvReac Type Severity Reaction Status Date / Time midazolam [From Versed] AdvReac Mild Nausea Verified 05/06/21 11:04 Review of Systems Review of Systems Narrative: Patient has no cough cold or asthma. No chest pain or heart problems. No black or bloody bowel movements. No seizures or blackouts. Exam Vital Signs (past 8 hours): - 05/06/21 11:11 Temperature 98.3 F Pulse Rate 69 Respiratory Rate 16 Blood Pressure 178/100 H Pulse Oximetry 100 Oxygen Delivery Method Room Air Narrative Exam Narrative: Pleasant cooperative patient no apparent distress. No nodes in the neck or supraclavicular areas. Lungs are clear to auscultation. No rales or rhonchi. Heart regular rate and rhythm no murmur gallop. Abdomen is soft nontender without mass. Patient has reducible right inguinal hernia. None felt on the left. Patient is alert and oriented x3. Assessment & Plan Assessment and plan (1) Right inguinal hernia: Status: Acute Assessment & Plan narrative: I have discussed repair with the patient with and without mesh. Risks of bleeding, infection, recurrence were discussed with him. I also discussed nerve injury which could lead to chronic pain or numbness. Testicular injury could occur as well as a vas deferens injury. Appears to understand all this and wishes to proceed. He leaves to my discretion whether mesh is actually used or not. I told him I would try not to use mesh which would be his preference. Time Spent With Patient Critical Care time: I spent a total of [] minutes of critical care time on this patient's care today; this time is exclusive of procedural time.
--- NOTE | 2021-05-06 13:28 | PM.PREOP ---
Pre-operative Note COVID-19 COVID-19 status: Negative Result date/Date tested (Pos, Neg/Pending): 05/05/21 Interval Note History & Physical reviewed/Exam performed by Physician: Yes Changes to H&P: No
[2021-05-06] MEDS: CEFAZOLIN 2 GM/20 ML SYRINGE IV (13:42)
[2021-05-06] MEDS: BUPIVACAINE 0.5% (PF) VIAL 30 ML INJ (14:06)
[2021-05-06 14:47] VITALS: BP 147/77; PULSE 75; RESP 23; TEMP 36.6; O2SAT 97
--- NOTE | 2021-05-06 14:52 | SUR.OPER ---
Patients glasses, bilateral hearing aids, 2 books and cell phone placed in patients belonging bag along with his shoes in pre-op area.
[2021-05-06 14:55] VITALS: PULSE 70; RESP 13; O2SAT 96
[2021-05-06 15:00] VITALS: BP 130/94; PULSE 77; RESP 13; O2SAT 98
--- NOTE | 2021-05-06 15:03 | PM.OP.1 ---
Operative Date/Time/Diagnoses Date of procedure: 05/06/21 Time of procedure: 15:03 Pre-op diagnosis: Right inguinal hernia reducible Post-op diagnosis: same (Direct hernia) Procedure & Clinicians Procedure: Repair right inguinal hernia with a shouldice technique Same procedure as scheduled: Yes Indications: Symptomatic right inguinal hernia. Patient preferred not to use mesh if possible. Surgeon: Garett Gilbert Click Yes if Unassisted: Yes Anesthesia Type: General Operative Notes Findings: Direct hernia Closure Type: primary Specimen(s): none sent Estimated Blood Loss (mL): 5 Blood products transfused: none Procedure in detail: The patient was placed supine on the operating room table underwent general LMA anesthesia. He was prepped and draped in the usual fashion. Transverse incision was made overlying the internal ring and carried down level the external oblique. The external oblique was opened parallel with its fibers through the external ring. Cord structures were elevated. Cremaster was opened proximally and search made for an indirect sac. None was found. The cord was really quite diminutive. I opened the floor through an obvious defect in its center and dissected preperitoneal fat from under it. Using a running 2 0 Prolene suture a suture was placed at the level of the pubic tubercle and I ran it to the to form a new internal ring suturing the cut edge of the ileopubic tract to the underside of the cut edge on the medial aspect into the transversus abdominis muscle. Using the same suture running it back suturing the very edge of inguinal ligament and remainder of ileopubic tract to the cut edge of the medial floor I reach the pubic tubercle and tied the suture at that level. I then began at the newly formed internal ring and sutured slightly lateral inguinal ligament to the medial internal oblique running it to the pubic tubercle and back. The floor appeared to be well reinforced and the hernia corrected. The patient local anesthetic infiltrated and then a 3-0 Vicryl was used to close the external oblique. 4-0 Vicryl was used to close the subcu fat using interrupted sutures and the skin closed using a running 4-0 Vicryl subcuticular stitch. Mastisol Steri-Strips and dressing were applied. The testicle was pulled down and the patient was awakened and taken the recovery room good condition. Post-operative Condition: stable Disposition: PACU
[2021-05-06 15:15] VITALS: BP 148/85; PULSE 71; RESP 15; TEMP 36.4; O2SAT 98
[2021-05-06] MEDS: ACETAMINOPHEN 325 MG TABLET 975 MG PO (15:16)
[2021-05-06 15:30] VITALS: BP 142/81; PULSE 72; RESP 16; TEMP 36.4; O2SAT 98
== END 2021-05-06 14:45 | disposition home or self-care (01) ==
PROVIDERS: Family Provider Family Medicine; PCP Family Medicine; Referring Provider Specialist; Visit Provider Specialist
PROC: (CPT 49505; principal; 2021-05-06 12:45)
DX: K40.90 Unilateral inguinal hernia, without obstruction or gangrene, not specified as recurrent (principal); I10 Essential (primary) hypertension
CPT/HCPCS: 49505; J0690; J1100; J1885; J2405; J2704; J3010

== ENCOUNTER → 2021-05-14 08:16 | Outpatient (CLI) | payer MEDICARE, OTHER, SELFPAY ==
--- NOTE | 2021-05-14 08:17 | DI.US.S_ITS ---
PROCEDURE: US SCROTUM INDICATIONS: RIGHT TESTICLE PAIN TECHNIQUE: Real-time scanning was performed of the scrotum and testicles, with image documentation. Color and pulse Doppler interrogation was performed of both testicles. COMPARISON: None. FINDINGS: Right: Testicle is normal in size at 4.8 x 3.4 x 2.8 cm, and homogenous in echotexture. Epididymis is normal in overall size . 8 x 2 mm bilobed simple cyst in right epididymal head is seen. No hydrocele or varicoceles. Overlying scrotal skin is normal in thickness. Left: Testicle is normal in size at 4.6 x 3.4 x 2.3 cm, and homogeneous in echotexture. Epididymis is normal in overall size . Multiple tiny cysts are seen in left epididymal head and measures up to 5 x 6 x 4 mm in size. No hydrocele or varicoceles. Overlying scrotal skin is normal in thickness. Doppler: Color and pulse Doppler demonstrate normal and symmetric arterial flow in both testicles. IMPRESSION: Bilateral epididymal head cysts as above. No testicular torsion. No discrete testicular lesion. No significant hydrocele or varicoceles. Dictated by: Daron Bai M.D. on 05/14/2021 at 13:19 Approved by: Daron Bai M.D. on 05/14/2021 at 13:20
== END ==
PROVIDERS: Family Provider Family Medicine; PCP Family Medicine; Referring Provider Surgery; Visit Provider Surgery
DX: K40.90 Unilateral inguinal hernia, without obstruction or gangrene, not specified as recurrent (principal); N50.3 Cyst of epididymis
CPT/HCPCS: 76870

== ENCOUNTER → 2021-07-28 11:12 | Outpatient (CLI) | payer MEDICARE, OTHER, SELFPAY ==
[2021-07-28 13:23] LABS: Prostate Specific Antigen 2.89 ng/mL (0.10-4.00)
== END ==
PROVIDERS: Family Provider Family Medicine; PCP Family Medicine; Referring Provider Specialist; Visit Provider Specialist
DX: N40.0 Benign prostatic hyperplasia without lower urinary tract symptoms (principal)
CPT/HCPCS: 36415; 84153

== ENCOUNTER → 2021-08-06 08:26 | Outpatient (CLI) | payer MEDICARE, OTHER, SELFPAY ==
[2021-08-06 09:29] LABS: Alanine Aminotransferase 27 IU/L (<50); Albumin 4.6 g/dL (3.5-5.0); Albumin Globulin Ratio 2.1 (1.0-2.8); Alkaline Phosphatase 35 U/L (38-126); Aspartate Aminotransferase 29 IU/L (17-59); BUN Creatinine Ratio 19.3 (6-22); Bilirubin Total 1.4 mg/dL (0.2-1.3); Blood Urea Nitrogen 17 mg/dL (9-20); Calcium 9.2 mg/dL (8.4-10.2); Carbon Dioxide 30 mmol/L (22-32); Chloride 101 mmol/L (98-107); Estimated Glomerular Filt Rate > 60.0 mL/min (>60); Globulin 2.2 g/dL (1.7-4.1); Glucose 96 mg/dL (80-110); HEMOLYSIS < 15 (0-50); Potassium 4.3 mmol/L (3.4-5.1); Sodium 137 mmol/L (137-145); Total Protein 6.8 g/dL (6.3-8.2)
== END ==
PROVIDERS: Family Provider Family Medicine; PCP Family Medicine; Referring Provider Family Medicine; Visit Provider Family Medicine
DX: Z00.01 Encounter for general adult medical examination with abnormal findings (principal)
CPT/HCPCS: 36415; 80053

== ENCOUNTER → 2022-01-21 15:04 | Outpatient (CLI) | payer MEDICARE, OTHER, SELFPAY ==
--- NOTE | 2022-01-21 15:06 | DI.US.S_ITS ---
PROCEDURE: US ABDOMEN LIMITED INDICATIONS: History of inguinal hernia repair, stool changes, RLQ tender TECHNIQUE: Real-time scanning was performed of the inguinal regions, with image documentation. COMPARISON: [facility], , US ABDOMEN LIMITED, 03/26/2021, 8:34. FINDINGS: No abnormality identified in the mons pubis area in the area of tenderness. No hernia in the right groin seen. No left groin hernia seen. No fluid collection. IMPRESSION: No hernia demonstrated. Dictated by: Mahesh Christine M.D. on 01/21/2022 at 17:09 Approved by: Mahesh Christine M.D. on 01/21/2022 at 17:11
== END ==
PROVIDERS: Family Provider Family Medicine; PCP Family Medicine; Referring Provider Nurse Practitioner Critical Care Medicine; Visit Provider Nurse Practitioner Critical Care Medicine
DX: R10.30 Lower abdominal pain, unspecified (principal)
CPT/HCPCS: 76705

== ENCOUNTER → 2022-01-28 08:10 | Outpatient (CLI) | payer MEDICARE, OTHER, SELFPAY ==
--- NOTE | 2022-01-28 08:12 | DI.CT.S_ITS ---
PROCEDURE: CT ABDOMEN PELVIS WO CON INDICATIONS: rule out inguinal hernia TECHNIQUE: Noncontrast 5 mm thick sections acquired from the diaphragms to the symphysis. 5 mm coronal and sagittal reformats were then performed. For radiation dose reduction, the following was used: automated exposure control, adjustment of mA and/or kV according to patient size. Study was scanned with patient performing the Valsalva maneuver. COMPARISON: [facility], , ABDOMEN LIMITED, 01/21/2022, 15:47. FINDINGS: Image quality: Excellent. ABDOMEN: Lung bases: Lung bases are clear. Heart size is normal. Solid organs: Liver: Liver is normal in size. Gallbladder: Gallbladder is unremarkable. Pancreas: Pancreas is normal in contours. Spleen: Spleen is normal in size. Adrenal Glands: No adrenal nodules. Kidneys/Ureters: Kidneys are normal in size, without hydronephrosis or nephrolithiasis. Ureters are normal in course and caliber. Peritoneum and bowel: Unenhanced bowel loops demonstrate normal wall thickness and caliber. No free fluid or air. Normal appendix. Moderate amount of fecal material seen throughout the colon. Nodes and vessels: No retroperitoneal or mesenteric adenopathy by size criteria. Aorta and inferior vena cava are normal in caliber. Scattered atherosclerotic calcifications. Miscellaneous: No ventral hernias. PELVIS: Genitourinary: Bladder wall thickness is normal. Miscellaneous: No inguinal hernias or adenopathy. Bones: No suspicious bony lesions. No acute vertebral body compression fractures. IMPRESSION: CT abdomen and pelvis without acute abnormalities. No evidence for inguinal hernias identified. Of note, this study was obtained while patient performed Valsalva maneuver. Dictated by: Jose Alfredo Moreira M.D. on 01/28/2022 at 9:07 Approved by: Jose Alfredo Moreira M.D. on 01/28/2022 at 11:19
== END ==
PROVIDERS: Family Provider Family Medicine; PCP Family Medicine; Referring Provider Family Medicine; Visit Provider Family Medicine
DX: R10.813 Right lower quadrant abdominal tenderness (principal)
CPT/HCPCS: 74176

== ENCOUNTER → 2022-02-12 11:30 | Outpatient (CLI) | payer MEDICARE, OTHER, SELFPAY ==
[2022-02-12 13:17] LABS: Alanine Aminotransferase 22 IU/L (<50); Albumin 4.1 g/dL (3.5-5.0); Albumin Globulin Ratio 1.6 (1.0-2.8); Alkaline Phosphatase 38 U/L (38-126); Aspartate Aminotransferase 27 IU/L (17-59); BUN Creatinine Ratio 15.5 (6-22); Bilirubin Total 1.1 mg/dL (0.2-1.3); Blood Urea Nitrogen 13 mg/dL (9-20); Carbon Dioxide 31 mmol/L (22-32); Chloride 103 mmol/L (98-107); Cholesterol 166 mg/dL (140-199); Estimated Glomerular Filt Rate > 60 mL/min (>60); Globulin 2.6 g/dL (1.7-4.1); Glucose 99 mg/dL (80-110); HDL Cholesterol 58 mg/dL (40-60); HEMOLYSIS < 15 (0-50); LDL Cholesterol Calculated 99 mg/dL (<100); Potassium 4.4 mmol/L (3.4-5.1); Sodium 137 mmol/L (137-145); Total Protein 6.7 g/dL (6.3-8.2); Triglycerides 47 mg/dL (35-150)
== END ==
PROVIDERS: Family Provider Family Medicine; PCP Family Medicine; Referring Provider Family Medicine; Visit Provider Family Medicine
DX: I10 Essential (primary) hypertension (principal)
CPT/HCPCS: 36415; 80053; 80061

== ENCOUNTER → 2022-02-16 09:13 | Outpatient (CLI) | payer MEDICARE, OTHER, SELFPAY ==
[2022-02-16 11:05] LABS: COVID19 -Nasal RAPID Negative (Negative)
== END ==
PROVIDERS: Family Provider Family Medicine; PCP Family Medicine; Visit Provider Surgery
DX: Z01.812 Encounter for preprocedural laboratory examination (principal); Z20.822 Contact with and (suspected) exposure to COVID-19
CPT/HCPCS: 87635; C9803

== ENCOUNTER 2022-02-17 08:13 | Day surgery (SDC) | payer MEDICARE, OTHER, SELFPAY ==
[2022-02-17] VITALS (8 sets, daily range): BP systolic 96–139; BP diastolic 56–83; PULSE 48–56; RESP 10–16; TEMP 36.3–36.8; O2SAT 93–100; BMI 25.4
[2022-02-17] MEDS: LACTATED RINGERS 1,000 ML 100 ML IV (09:07)
--- NOTE | 2022-02-17 09:25 | PM.PREOP ---
Pre-operative Note COVID-19 COVID-19 status: Negative Result date/Date tested (Pos, Neg/Pending): 02/16/22 Interval Note History & Physical reviewed/Exam performed by Physician: Yes Changes to H&P: No ASA Class (for procedural sedation): II
--- NOTE | 2022-02-17 09:46 | SUR.OPER ---
Patients glasses and bilateral hearing aids brought with patient to OR then to PACU. Left hearing aid removed and placed in patients hearing aid container by patient as patient was left side lying.
--- NOTE | 2022-02-17 10:21 | PM.OP.COLON ---
Operative Date/Time/Diagnoses Date of procedure: 02/17/22 Time of procedure: 10:21 Pre-op diagnosis: Change in bowel habits Post-op diagnosis: same Procedure & Clinicians Study performed: Colonoscopy Same procedure as scheduled: Yes Surgeon: Abdi Muniz Procedure Notes Procedure in detail: Surgeon: Abdi Muniz MD Anesthesia: MAC by Dr. Jessica Procedure: The patient was brought to the endoscopy suite, placed in left lateral decubitus position. The patient was connected to monitoring devices. A time-out was performed. Mac was administered by Dr. Jessica. Once the patient was adequately sedated, a digital rectal exam was performed and was normal. The scope was then inserted and advanced as far as possible. Patient had an extremely redundant colon that was prone to looping. The scope could not be advanced to the cecum despite multiple maneuvers such as repositioning to the supine position, pelvic tilts, use of the stiffener and manual pressure on the abdomen. It is felt that the majority of the transverse colon was visualized however no landmarks could be confirmed. The mucosa was carefully inspected as the scope was withdrawn and no polyps were noted. No diverticula were noted. The scope was retroflexed in the rectum. No abnormalities were noted there. The scope was straightened and removed. The patient was awakened and brought to recovery. Findings: Incomplete colonoscopy. The visualized portions of the colon were normal Scope withdrawal time: Not applicable Post-procedure Plan for aftercare: The patient will be offered a barium enema to evaluate the most proximal portions of the colon Disposition: PACU
--- NOTE | 2022-02-17 11:40 | SUR.PHASEII ---
Dr Muniz spent a long time with pt in PACU and this RN spent a long time going over d/c instruction. Pt left when ready and left in stable condition.
== END 2022-02-17 11:25 | disposition home or self-care (01) ==
PROVIDERS: Family Provider Family Medicine; PCP Family Medicine; Referring Provider Surgery; Visit Provider Surgery
PROC: 0DJD8ZZ Inspection of Lower Intestinal Tract, Via Natural or Artificial Opening Endoscopic (ICD-10-PCS; CPT 45378; principal; 2022-02-17 09:45)
DX: R19.4 Change in bowel habit (principal); R10.31 Right lower quadrant pain
CPT/HCPCS: 45378; J2704

== ENCOUNTER → 2022-04-23 08:47 | Outpatient (CLI) | payer MEDICARE, OTHER, SELFPAY ==
--- NOTE | 2022-04-23 08:48 | DI.RAD.S_ITS ---
PROCEDURE: FL BARIUM ENEMA INDICATIONS: Incomplete colonoscopy COMPARISON: [facility], CT, CT ABDOMEN PELVIS WO CON, 01/28/2022, 8:27. FINDINGS: KUB: Preprocedural trim and burr operator film demonstrates a normal bowel gas pattern. No suspicious abdominal calcifications. Visualized solid organ contours appear normal in size. No suspicious bony lesions. Colon: Colon is redundant. There is adequate opacification of the entire colon. No strictures or extrinsic mass effects are identified. No colonic fistulae or perforations. Colon caliber appears normal. There is a diverticulum in the descending colon. IMPRESSION: 1. Colon is redundant, which can compromised the test. 2. No colonic mass, polyp or stricture. 3. There is a colonic diverticula in the descending colon. Dictated by: Nadia Kang M.D. on 04/23/2022 at 11:44 Approved by: Nadia Kang M.D. on 04/23/2022 at 11:48
== END ==
PROVIDERS: Family Provider Family Medicine; PCP Family Medicine; Referring Provider Surgery; Visit Provider Surgery
DX: Q43.8 Other specified congenital malformations of intestine (principal); Z12.11 Encounter for screening for malignant neoplasm of colon; K57.30 Diverticulosis of large intestine without perforation or abscess without bleeding
CPT/HCPCS: 74270

== ENCOUNTER → 2022-08-03 08:27 | Outpatient (CLI) | payer MEDICARE, OTHER, SELFPAY ==
[2022-08-03 10:15] LABS: Prostate Specific Antigen Scrn 3.89 ng/mL (0.1-4.0)
== END ==
PROVIDERS: Family Provider Family Medicine; PCP Family Medicine; Referring Provider Family Medicine; Visit Provider Family Medicine
DX: Z12.5 Encounter for screening for malignant neoplasm of prostate (principal)
CPT/HCPCS: 36415; G0103

== ENCOUNTER → 2022-10-04 15:12 | Outpatient (CLI) | payer MEDICARE, OTHER, SELFPAY ==
[2022-10-04 16:04] LABS: D Dimer 577 ng/ml (<500)
== END ==
PROVIDERS: Family Provider Family Medicine; PCP Family Medicine; Referring Provider Physician Assistant; Visit Provider Physician Assistant
DX: M79.605 Pain in left leg (principal)
CPT/HCPCS: 36415; 85379

== ENCOUNTER 2022-10-04 16:58 | Emergency (ER) | payer MEDICARE, OTHER, SELFPAY ==
[2022-10-04 17:05] VITALS: BP 125/81; PULSE 71; RESP 19; TEMP 36.5; O2SAT 99; BMI 25.1
--- NOTE | 2022-10-04 18:30 | DI.US.S_ITS ---
PROCEDURE: US PERIPH VENOUS LOW EXTREM LT INDICATIONS: LEFT CALF PAIN TECHNIQUE: Real-time imaging, as well as color and pulse Doppler interrogation, were performed of the lower extremity deep veins from the inguinal ligament to the popliteal fossa. COMPARISON: None. FINDINGS: The common femoral, femoral and popliteal veins are normally compressible, and free of intraluminal thrombus. Color and pulse Doppler demonstrate normal phasic intraluminal flow. There is normal augmentation response to distal compression maneuver. IMPRESSION: Negative for deep venous thrombosis. Dictated by: Hadley Trejo M.D. on 10/04/2022 at 17:57 Approved by: Hadley Trejo M.D. on 10/04/2022 at 17:57
--- NOTE | 2022-10-04 19:25 | ED_ITS ---
HPI - Extremity Problem <Alec Weathers PA-C - Last Filed: 10/04/22 19:31> General Chief complaint: Extremity Problem,Nontraumatic Stated complaint: Bad Blood tests [facility] sent] Time Seen by Provider: 10/04/22 17:22 Source: patient Mode of arrival: Family Vehicle History of Present Illness HPI Narrative: 67-year-old male presents to the ED with left calf pain. Patient states that he was on a flight to [place] last week, following which he felt left-sided calf pain. Patient has been using compression stockings and taking aspirin with no relief. Patient was seen in the walk-in clinic earlier today, sent to the ED for a rule out DVT. Patient's age adjusted d-dimer which was 577 today was below the threshold for a DVT. Patient denies numbness, tingling, weakness. Patient denies prior history of DVTs or PEs. Patient does not take blood thinners. Related Data Home Medications Medication Instructions Recorded Confirmed FLAXSEED (FLAXSEED OIL) 1 cap PO Q DAY ##0 12/31/10 10/04/22 [VITAMINS] See Rx Instructions .Route 12/31/10 10/04/22 .COMPLEX ##0 omega-3 fatty acids [Fish Oil] PO 11/14/19 10/04/22 aspirin 81 mg tablet,delayed 81 mg PO .every other day 12/10/20 10/04/22 release niacin 500 mg tablet 500 mg PO DAILY 12/22/20 10/04/22 Previous Rx's Medication Instructions Recorded hydrochlorothiazide 25 mg tablet See Rx Instructions .Route 08/04/21 .COMPLEX #90 tabs sodium sul 1.479 gram-potas ch See Rx Instructions PO PER PKG DIR 04/20/22 0.188 gram-magnes sul 0.225 gram #24 tabs tablet (Sutab) lisinopril 5 mg tablet 5 mg PO DAILY #90 tabs 09/21/22 Allergies Allergy/AdvReac Type Severity Reaction Status Date / Time midazolam [From Versed] AdvReac Mild Nausea Verified 10/04/22 17:05 Review of Systems <Alec Weathers PA-C - Last Filed: 10/04/22 19:31> Review of Systems ROS Unobtainable: All systems reviewed & are unremarkable except as noted in HPI and below Constitutional Constitutional: Denies chills, Denies fatigue, Denies fever(s), Denies frequent falls, Denies lethargy and Denies weakness Eyes Eyes: Denies change in vision, Denies eye discharge, Denies irritation and Denies loss of vision ENT Ears, Nose, Mouth, and Throat: Denies change in voice, Denies dizziness, Denies neck pain, Denies sore throat and Denies throat swelling Cardiovascular Cardiovascular: Denies chest pain, Denies irregular heart rhythm, Denies lig htheadedness, Denies palpitations, Denies dyspnea, Denies dyspnea on exertion and Denies orthopnea Respiratory Respiratory: Denies cough, Denies dyspnea, Denies dyspnea on exertion and Denies wheezing Gastrointestinal Gastrointestinal: Denies abdominal pain, Denies change in bowel habits, Denies diarrhea, Denies nausea and Denies vomiting Genitourinary Genitourinary: Denies hematuria, Denies flank pain, Denies urinary incontinence and Denies urinary urgency Musculoskeletal Musculoskeletal: Denies back pain, Denies muscle weakness, Denies neck pain, Denies numbness and Denies tingling Comments: Left calf pain Integumentary/Breasts Skin/Breast: Denies pruritus, Denies erythema, Denies rash and Denies wounds Neurologic Neurologic: Denies behavioral changes, Denies confusion, Denies dizziness, Denies frequent falls, Denies loss of vision, Denies numbness, Denies tingling and Denies weakness Psychiatric Psychiatric: Denies anxiety, Denies behavioral changes, Denies confusion, Denies depression, Denies homicidal ideation and Denies suicidal ideation Endocrine Endocrine: Denies fatigue, Denies flushing and Denies palpitations Hematologic/Lymphatic Hematologic/Lymphatic: Denies easy bruising Allergic/Immunologic Allergic/Immunologic: Denies urticaria, Denies throat swelling and Denies wheezing Patient History <Alec Weathers PA-C - Last Filed: 10/04/22 19:31> Medical History Basal cell carcinoma (Unknown) BPH (benign prostatic hyperplasia) (Unknown) Constipation Diverticulosis Elevated PSA (Unknown) Family history of prostate cancer in father Former smoker Hearing loss (Unknown) Hernia, inguinal, right History of elevated PSA Hyperlipidemia Hypertension (Unknown) Left inguinal hernia Osteoarthritis (Unknown) Right inguinal hernia Spinal stenosis (Unknown) Tinnitus of both ears (Unknown) Surgical History H/O circumcision H/O prostate biopsy Hx of left inguinal hernia repair (07/02/19) Hx of tonsillectomy Family History Father Cancer Social History marital status: household members: spouse and children occupational status: previously employed Smoking Status: Former smoker alcohol intake: current substance use type: does not use Smoking Status: Former smoker tobacco type: cigarettes alcohol intake frequency: 0-2 drinks per day Substance Use Type: does not use Exam <Alec Weathers PA-C - Last Filed: 10/04/22 19:31> Narrative Exam Narrative: Const General:?cooperative, healthy appearing and comfortable HENCT Head:?normal to inspection Ears:?hearing grossly normal bilaterally Nose:?external nose normal Face and sinus:?normal facial exam and sinuses nontender Mouth:?oral mucosae normal Throat:?posterior oropharynx normal Eyes General:?appearance normal, both eyes and all related structures Neck Neck:?normal visual inspection and no lymphadenopathy noted Resp Effort & Inspection:?normal respiratory effort Auscultation:?clear to auscultation bilaterally Cardio Rate:?regular rate Rhythm:?regular rhythm Musculoskeletal No swelling, erythema, tenderness to palpation. Strength and sensation is intact. Full range of motion. Gait is normal. Neuro General:?patient alert, patient awake and patient oriented x3 Initial Vital Signs Initial Vital Signs: Vital Signs Temperature 97.7 F 10/04/22 17:05 Pulse Rate 71 10/04/22 17:05 Respiratory Rate 19 10/04/22 17:05 Blood Pressure 125/81 10/04/22 17:05 Pulse Oximetry 99 10/04/22 17:05 Oxygen Delivery Method Room Air 10/04/22 17:05 <Bhanu Mejia DO - Last Filed: 10/05/22 07:23> Initial Vital Signs Initial Vital Signs: Vital Signs Temperature 97.7 F 10/04/22 17:05 Pulse Rate 71 10/04/22 17:05 Respiratory Rate 19 10/04/22 17:05 Blood Pressure 125/81 10/04/22 17:05 Pulse Oximetry 99 10/04/22 17:05 Oxygen Delivery Method Room Air 10/04/22 17:05 Course <Alec Weathers PA-C - Last Filed: 10/04/22 19:31> Orders Ordered: ED Orders 10/04/22 18:30 US periph venous low extrem lt Stat Vital Signs Vital signs: Vital Signs - 8 hr 10/04/22 17:05 Temperature 97.7 F Pulse Rate 71 Respiratory Rate 19 Blood Pressure 125/81 Pulse Oximetry 99 Oxygen Delivery Method Room Air <Bahnu Mejia DO - Last Filed: 10/05/22 07:23> Orders Ordered: ED Orders 10/04/22 18:30 US periph venous low extrem lt Stat Vital Signs Vital signs: Vital Signs - 8 hr 10/04/22 17:05 Temperature 97.7 F Pulse Rate 71 Respiratory Rate 19 Blood Pressure 125/81 Pulse Oximetry 99 Oxygen Delivery Method Room Air MDM - Extremity (Nontraumatic) <Alec Weathers PA-C - Last Filed: 10/04/22 19:31> MDM Narrative Medical decision making narrative: 67-year-old male presents to the ED with left calf pain. Patient states that he was on a flight to [place] last week, following which he felt left-sided calf pain. It is reassuring that the age adjusted D-dimer of 577 is below the threshold indicative of a DVT. An ultrasound was obtained as well with no evidence of DVTs or other acute findings. Recommend heat, rest, elevation, ibuprofen/Tylenol for symptoms. Recommend follow-up with PCP as soon as possible. ED return precautions were discussed with patient. Patient verbalized understanding. Medical records reviewed: Yes Discharge Plan Departure Patient Disposition: Home Clinical Impression: Leg pain Instructions: DI for Leg Pain Activity Restrictions/Additional Instructions: You were evaluated in the ED today for left leg pain. Your ultrasound did not show any blood clots (DVTs). Your blood test for blood clots was also normal for your age. Your leg pain is likely due to a musculoskeletal sprain/strain. You may take Tylenol, ibuprofen for your symptoms. Return to the ED if you experience numbness, tingling, weakness. Please follow-up with your PCP as soon as possible. Prescriptions: No Action FLAXSEED (FLAXSEED OIL) 1 cap PO Q DAY Qty: 0 [VITAMINS] See Rx Instructions .ROUTE .COMPLEX Qty: 0 Rx Instructions: health Sutab 1.479-0.188- 0.225 gram tablet See Rx Instructions PO PER PKG DIR Qty: 24 0RF Rx Instructions: Take as directed by Physician lisinopril 5 mg tablet 5 mg PO DAILY Qty: 90 2RF niacin 500 mg tablet 500 mg PO DAILY hydrochlorothiazide 25 mg tablet See Rx Instructions .ROUTE .COMPLEX Qty: 90 3RF Dose Instruction: TAKE 1 TABLET DAILY Rx Instructions: TAKE 1 TABLET DAILY omega-3 fatty acids PO aspirin 81 mg tablet,delayed release (DR/EC) 81 mg PO .every other day Referrals: Alfredo Chaevs DO [Primary Care Provider] - Stand Alone Forms: Patient Portal/API <Bhanu Mejia DO - Last Filed: 10/05/22 07:23> Cosign ED Attending Cosignature Attestation: Dr Mejia Co-Sign Statement: I was available for consultation during this patient's emergency department visit. This chart is signed by myself for administrative purposes only. I did not have direct contact with this patient during this visit. They were seen independently by the APC.
[2022-10-04 19:27] VITALS: BP 133/67; PULSE 77; RESP 17; O2SAT 99
== END 2022-10-04 19:30 | disposition home or self-care (01) ==
PROVIDERS: Emergency Provider Student in an Organized Health Care Education/Training Program; Family Provider Family Medicine; PCP Family Medicine
DX: M79.662 Pain in left lower leg (principal)
CPT/HCPCS: 36415; 85379; 93971; 99281; 99283

== ENCOUNTER → 2023-03-10 09:37 | Outpatient (CLI) | payer MEDICARE, OTHER, SELFPAY ==
[2023-03-10 11:12] LABS: Alanine Aminotransferase 34 IU/L (<50); Albumin 4.3 g/dL (3.5-5.0); Albumin Globulin Ratio 1.8 (1.0-2.8); Alkaline Phosphatase 40 U/L (38-126); Aspartate Aminotransferase 29 IU/L (17-59); BUN Creatinine Ratio 15.7 (6-22); Bilirubin Total 1.2 mg/dL (0.2-1.3); Blood Urea Nitrogen 14 mg/dL (9-20); Calcium 9.5 mg/dL (8.4-10.2); Carbon Dioxide 29 mmol/L (22-32); Chloride 102 mmol/L (98-107); Estimated Glomerular Filt Rate > 60 mL/min (>60); Globulin 2.4 g/dL (1.7-4.1); Glucose 84 mg/dL (80-110); HEMOLYSIS < 15 (0-50); Potassium 4.2 mmol/L (3.4-5.1); Sodium 137 mmol/L (137-145); Total Protein 6.7 g/dL (6.3-8.2)
[2023-03-10 11:37] LABS: Prostate Specific Antigen 2.96 ng/mL (0.10-4.00)
== END ==
PROVIDERS: Family Provider Family Medicine; PCP Family Medicine; Referring Provider Family Medicine; Visit Provider Family Medicine
DX: N40.0 Benign prostatic hyperplasia without lower urinary tract symptoms (principal); I10 Essential (primary) hypertension
CPT/HCPCS: 36415; 80053; 84153

== ENCOUNTER → 2023-09-14 07:04 | Outpatient (CLI) | payer MEDICARE, OTHER, SELFPAY ==
[2023-09-14 09:27] LABS: Alanine Aminotransferase 20 IU/L (<50); Albumin 4.3 g/dL (3.5-5.0); Albumin Globulin Ratio 1.8 (1.0-2.8); Alkaline Phosphatase 42 U/L (38-126); Aspartate Aminotransferase 27 IU/L (17-59); BUN Creatinine Ratio 17.3 (6-22); Bilirubin Total 1.1 mg/dL (0.2-1.3); Blood Urea Nitrogen 14 mg/dL (9-20); Calcium 9.6 mg/dL (8.4-10.2); Carbon Dioxide 29 mmol/L (22-32); Chloride 103 mmol/L (98-107); Cholesterol 197 mg/dL (140-199); Estimated Glomerular Filt Rate > 60 mL/min (>60); Globulin 2.4 g/dL (1.7-4.1); Glucose 95 mg/dL (80-110); HDL Cholesterol 60 mg/dL (40-60); HEMOLYSIS < 15 (0-50); LDL Cholesterol Calculated 122 mg/dL (<100); Potassium 4.4 mmol/L (3.4-5.1); Sodium 137 mmol/L (137-145); Total Protein 6.7 g/dL (6.3-8.2); Triglycerides 73 mg/dL (35-150)
[2023-09-16 09:10] LABS: PSA Free % 24.6 % (.); PSA, Total 5.4 ng/mL (0.0-4.0)
== END ==
PROVIDERS: Family Provider Family Medicine; PCP Family Medicine; Referring Provider Family Medicine; Visit Provider Family Medicine
DX: I10 Essential (primary) hypertension (principal); N40.0 Benign prostatic hyperplasia without lower urinary tract symptoms; Z80.42 Family history of malignant neoplasm of prostate
CPT/HCPCS: 36415; 80053; 80061; 84153; 84154

== ENCOUNTER → 2023-12-14 14:09 | Outpatient (CLI) | payer MEDICARE, OTHER, SELFPAY ==
[2023-12-19 09:11] LABS: PSA, Total 1.4 ng/mL (0.0-4.0)
== END ==
PROVIDERS: Family Provider Family Medicine; PCP Family Medicine; Referring Provider Family Medicine; Visit Provider Family Medicine
DX: N40.0 Benign prostatic hyperplasia without lower urinary tract symptoms (principal); R97.20 Elevated prostate specific antigen [PSA]
CPT/HCPCS: 36415; 84153; 84154

== ENCOUNTER → 2024-07-26 12:33 | Outpatient (CLI) | payer MEDICARE, OTHER, SELFPAY ==
[2024-07-28 07:10] LABS: PSA, Total 1.4 ng/mL (0.0-4.0)
== END ==
PROVIDERS: PCP Family Medicine; Referring Provider Family Medicine; Visit Provider Family Medicine
DX: R97.20 Elevated prostate specific antigen [PSA] (principal); Z80.42 Family history of malignant neoplasm of prostate
CPT/HCPCS: 36415; 84153; 84154

== ENCOUNTER → 2025-02-07 08:16 | Outpatient (CLI) | payer MEDICARE, OTHER, SELFPAY ==
[2025-02-07 08:48] LABS: Add Manual Diff / Slide Review NO; Hematocrit 43.9 % (41-53); Hemoglobin 14.7 g/dL (13.5-17.5); Lymphocytes Absolute Auto 1500 /uL (1100-4500); Mean Corpuscular HGB Conc 33.6 % (30-36); Mean Corpuscular Hemoglobin 29.0 PG (26-34); Mean Corpuscular Volume 86.3 fL (80-100); Platelet Count 161 X10^3/uL (150-400)
[2025-02-07 09:32] LABS: Alanine Aminotransferase 27 IU/L (<50); Albumin 4.6 g/dL (3.5-5.0); Albumin Globulin Ratio 1.9 (1.0-2.8); Alkaline Phosphatase 40 U/L (38-126); Blood Urea Nitrogen 11 mg/dL (9-20); Calcium 9.1 mg/dL (8.4-10.2); Carbon Dioxide 28 mmol/L (22-32); Chloride 101 mmol/L (98-107); Cholesterol 205 mg/dL (140-199); Estimated Glomerular Filt Rate > 60 mL/min (>60); Globulin 2.4 g/dL (1.7-4.1); Glucose 95 mg/dL (70-99); HDL Cholesterol 55 mg/dL (40-60); HEMOLYSIS < 15 (0-50); Potassium 4.8 mmol/L (3.4-5.1); Sodium 137 mmol/L (137-145); Total Protein 7.0 g/dL (6.3-8.2); Triglycerides 109 mg/dL (35-150)
[2025-02-07 09:58] LABS: TSH w/ Reflex to FT4 0.75 uIU/mL (0.47-4.68)
== END ==
PROVIDERS: PCP Family Medicine; Referring Provider Family Medicine; Visit Provider Family Medicine
DX: I10 Essential (primary) hypertension (principal); Z12.5 Encounter for screening for malignant neoplasm of prostate; R97.20 Elevated prostate specific antigen [PSA]; N40.1 Benign prostatic hyperplasia with lower urinary tract symptoms; R39.12 Poor urinary stream
CPT/HCPCS: 36415; 80053; 80061; 84443; 85025; G0103